=== PATIENT | male | born 1960 | race Caucasian/White ===

== ENCOUNTER 2016-12-04 08:27 | Emergency (ER) | payer BC ==
[~2016-12-04] VITALS: Ht 190.5 cm; Wt 107.2 kg
[2016-12-04] MEDS ORDERED: SILVADENE20 GM TP (09:00)
[2016-12-04 09:10] VITALS: BP 127/86
== END 2016-12-04 09:39 | disposition home or self-care (01) ==
LOC: EME 08:27
DX: T22.211A Burn of second degree of right forearm, initial encounter (principal); T31.0 Burns involving less than 10% of body surface; X13.1XXA Other contact with steam and other hot vapors, initial encounter
CPT/HCPCS: 99281; 99283